=== PATIENT | female | born 1970 | race Caucasian/White ===

== ENCOUNTER 2020-12-10 15:27 | Inpatient (IN) | payer OTHER, SELFPAY ==
[~2020-12-10] VITALS: Ht 167.6 cm; Wt 138.0 kg
[2020-12-10 15:29] VITALS: BP 132/86
--- NOTE | 2020-12-10 15:31 | NUR ---
RT BEDSIDE WITH PATIENT GIVING BREATHING TX
--- NOTE | 2020-12-10 15:31 | NUR ---
BEDSIDE PERFORMNING US WITH PATIENT
[2020-12-10] MEDS ORDERED: NITROGLYCERIN 50 MG/D5W PREMIX 250 ML IV ONE (15:40)
--- NOTE | 2020-12-10 15:58 | NUR ---
MD CALLED FOR STAT BIPAP, PT PLACED ON BIPAP FOR RESP DISTRESS, PT SHOWED SIGNS FOR INCREASED WOB THAT IMPROVED WITH BIPAP PLACEMENT. PT TOLERATING AT THIS TIME.
--- NOTE | 2020-12-10 16:14 | NUR ---
HOTEL REGISTRATION CLERK BEDSIDE TRIED TO GET BLOOD, BUT WAS UNABLE TOO. GOING TO SEND ANOTHER TECH TO TRY AND DRAW BLOOD
--- NOTE | 2020-12-10 16:15 | NUR ---
XRAY BEDSIDE WITH PATIENT
--- NOTE | 2020-12-10 16:21 | NUR ---
LELO MANUEL TAKEN BEDSIDE AND WALKED OVER TO LAB
--- NOTE | 2020-12-10 16:30 | NUR ---
SLIVER LAP MACHINE TENDER BEDSIDE DRAWING BLOOD WORK
[2020-12-10 16:40] LABS: BASOPHILS % (AUTO) 0.4 % (0.0-2.0); EOSINOPHILS # (AUTO) 0.3 K/uL (0-0.4); HEMOGLOBIN 12.9 g/dL (12.0-16.0); LYMPHOCYTES # (AUTO) 1.5 K/uL (2.5-16.5); LYMPHOCYTES % (AUTO) 15.7 % (20.5-51.1); MEAN CORPUSCULAR HEMOGLOBIN 27 pg (27-31); MEAN CORPUSCULAR HGB CONC 32 g/dL (33-37); MEAN CORPUSCULAR VOLUME 84.1 fL (80-94); MONOCYTES # (AUTO) 0.7 K/uL (0.8-1.0); MONOCYTES % (AUTO) 6.9 % (1.7-9.3); NEUTROPHILS # (AUTO) 7.3 K/uL (1.8-7.7); PLATELET COUNT (AUTO) 281 K/uL (140-450); RED BLOOD CELL COUNT(AUTO) 4.75 MIL/uL (4.20-5.40); RED CELL DISTRIBUTION WIDTH 14.2 % (11.6-13.7); WHITE BLOOD COUNT (AUTO) 9.8 K/uL (4.8-10.8)
--- NOTE | 2020-12-10 16:43 | NUR ---
RT BEDSIDE WITH PT RE-EVALUATING
[2020-12-10 16:49] LABS: C-REACTIVE PROTEIN QUANT 2.2 mg/dL (0.0-0.9)
[2020-12-10 16:50] LABS: ANION GAP 12.1 (8-16); CARBON DIOXIDE 28.1 mmol/L (21-32); CREATININE 1.1 mg/dL (0.6-1.3); POTASSIUM 4.2 mmol/L (3.5-5.1)
[2020-12-10 16:56] LABS: BILIRUBIN,DIRECT 0.1 mg/dL (0.0-0.3); TOTAL BILIRUBIN 0.2 mg/dL (0.0-1.0)
[2020-12-10 17:07] LABS: ALBUMIN 3.1 g/dL (3.4-5.0)
[2020-12-10] MEDS ORDERED: AZITHROMYCIN 500 MG in DEXTROSE 5% 250 ML IV ONE (17:10)
[2020-12-10] MEDS ORDERED: cefTRIAXone 2,000 MG in DEXTROSE 5% 100 ML IV ONE (17:10)
[2020-12-10] MEDS ORDERED: cefTRIAXone 2,000 MG VIAL ONE (17:18)
--- NOTE | 2020-12-10 17:28 | NUR ---
RN WENT TO LOBBY/PARKING LOT TO SPEAK TO FAMILY. NO FAMILY MEMBERS PRESENT
--- NOTE | 2020-12-10 17:44 | NUR ---
SPOKE WITH PATIENTS FAUSTO NAZARIO AND PROVIDED UPDATE ON PATIENT. ARAVIND (SON) NUMBER: [phone]
--- NOTE | 2020-12-10 17:52 | NUR ---
PT RESTING IN BED. WILL CONTUINE TO MONITOR. VS STABLE
[2020-12-10] MEDS ORDERED: FUROSEMIDE 40 MG/4 ML VIAL IVP ONE (18:05)
[2020-12-10] MEDS ORDERED: ASPIRIN 81 MG TAB.CHEW PO ONE (18:05)
[2020-12-10] MEDS ORDERED: fentaNYL citrate 0.05 MG/ML VIAL IVP ONE (18:10)
[2020-12-10] MEDS ORDERED: MIRT-92 PO (18:14)
[2020-12-10] MEDS ORDERED: IBUP-2213 PO (18:14)
[2020-12-10] MEDS ORDERED: FURO-570 PO (18:14)
[2020-12-10] MEDS ORDERED: ASPI-1822 PO (18:14)
[2020-12-10] MEDS ORDERED: ESCI20TA PO (18:14)
[2020-12-10] MEDS ORDERED: AZITHROMYCIN 500 MG INJ VIAL IV ONE (18:20)
--- NOTE | 2020-12-10 19:22 | NUR ---
gave report to rafita de la cruz. transfer of care given
--- NOTE | 2020-12-10 19:31 | NUR ---
REPORT RECIEVED FROM CAROLINA HAN FOR CONTINUITY OF CARE.
--- NOTE | 2020-12-10 20:00 | NUR ---
ASSISTED PT WITH BED GARG AND REPOSITIONED FOR COMFORT. PT TOLERATED WELL.
--- NOTE | 2020-12-10 20:37 | NUR ---
WITH CONSENT FROM PATIENT, PROVIDED PT STATUS UPDATE TO PTS SONARAVIND ([phone]).
--- NOTE | 2020-12-10 20:44 | NUR ---
RT AT BEDSIDE.
--- NOTE | 2020-12-10 20:45 | NUR ---
NOTICED REDNESS ON PTS FACE UNDER BI-PAP MASK ADDED PROTECTA -GEL, ALSO TITRATED PT FIO2 DOWN TO 35%, PT IS TOLERATING WELL, WILL CONTINUE TO MONITOR
--- NOTE | 2020-12-10 20:55 | NUR ---
DR. Carlyle MAZA AT BEDSIDE
--- NOTE | 2020-12-10 20:56 | NUR ---
RECIEVED VERBAL ORDER FROM MD MAZA FOR BILATERAL LOWER EXTREMITY ULTRASOUND.
--- NOTE | 2020-12-10 21:10 | NUR ---
ULTRASOUND AT BEDSIDE.
--- NOTE | 2020-12-10 21:44 | NUR ---
Patient appears to be resting comfortably in bed WITH EYES CLOSED. VSS. Respirations even and unlabored, PT TOLERATING BIPAP WELL. DENIES DISCOMFORT AT THIS TIME.
[2020-12-10] MEDS ORDERED: ONDANSETRON 4 MG/2 ML VIAL IVP PRN (21:55)
[2020-12-10] MEDS ORDERED: KCL 20 MEQ/WATER INJ PREMIX 200 ML IV PRN (21:55)
[2020-12-10] MEDS ORDERED: MAG SULF 2000 MG/WATER PREMIX 50 ML IV PRN (21:55)
[2020-12-10] MEDS ORDERED: MORPHINE SULFATE 4 MG/ML SYR IVP PRN (21:55)
--- NOTE | 2020-12-10 22:04 | NUR ---
LAB AT BEDSIDE.
--- NOTE | 2020-12-10 22:17 | NUR ---
OFFERED TO REPOSITION, PT REPORTS SHE IS COMFORTABLE AT THIS TIME. DENIES NEEDING TO USE BED GARG. DENIES DISCOMFORT AT THIS TIME.
--- NOTE | 2020-12-10 22:35 | NUR ---
CRITICAL LAB VALUE RECIEVED FROM H[employer] FILM PROCESSING SHIFT SUPERVISOR: TROPONIN 0.121
--- NOTE | 2020-12-10 22:36 | NUR ---
SOTERO HUERTAS PAGED EDGING CATCHER MD TO REPORT CRITICAL LAB VALUE.
--- NOTE | 2020-12-10 22:40 | NUR ---
RT AT BEDSIDE ASSESSING PATIENT.
--- NOTE | 2020-12-10 23:06 | NUR ---
SPOKE WITH MD BELTRÁN, UPDATED REGARDING CRITICAL LAB VALUE, NEW ORDER RECIEVED: HEPARIN SUBQ 5,000 UNITS STAT.
--- NOTE | 2020-12-10 23:15 | NUR ---
PT REPOSITIONED IN BED FOR COMFORT. ADDITIONAL BLANKET PROVIDED PER PT REQUEST. PT DENIES PAIN OR DISCOMFORT AT THIS TIME.
--- NOTE | 2020-12-10 23:31 | NUR ---
Patient will be admitted to care of MD NELIDA. Admited to ICU. Will go to room 7. Belongings list completed. Report to CAROLINA POST.
--- NOTE | 2020-12-10 23:34 | NUR ---
PT TAKEN TO ICU BED 7 VIA DILIA WITH DREW (RT), DOUGLAS (RN) AND KURT (EMT.) PTS SON, ARAVIND, UPDATED PER REQUEST REGARDING PT STATUS AND ADMISSION.
--- NOTE | 2020-12-10 23:45 | NUR ---
ASSISTED ER STAFF WITH TRANSPORT OF PT FROM ER BED #7 TO ICU BED#8, PT REMAINS STABLE ON BI-PAP, IN NO DISTRESS, WILL CONTINUE TO MONITOR
--- NOTE | 2020-12-10 23:50 | NUR ---
RECIEVED ED ADMISSION BY ER NURSE, PT PRINCE DOBBS, A&0X4, ABLE TO MAKE NEEDS KNOWN AND FOLLOWS COMMANDS, ABLE TO SLIDE INTO ICU BED FROM THE HERMESRNANDO, AFEBRILE, VSS, SR ON MONITOR, PT ON BIPAP FIO2 32% W/ SATURATION 87%, SKIN WARM DRY AND INTACT, LAC 20 G PIV SALINE LOCKED, INTACTED FLUSHED AND PATENT, PT BELONGINGS PLACED AT BEDSIDE, PT ORIENTED TO UNIT, NO SIGNS OF ACUTE DISTRESS, SAFETY MEASURES IN PLACE, WILL CONTINUE WITH CURRENT
[2020-12-11] VITALS (17 sets, daily range): BP systolic 93–139; BP diastolic 43–74
--- NOTE | 2020-12-11 | NUR ---
STARTED NS TKO, ADMINISTERED 0000H MEDICATION PER MD ORDER
[2020-12-11] MEDS ORDERED: PIPERACILLIN/TAZOBACTAM 3.375 GM VIAL IV ONE (00:14)
[2020-12-11] MEDS: PIPERACILLIN/TAZOBACTAM 3.375 GM in DEXTROSE 5% 50 ML IV SCH ×5 (00:44→23:08)
--- NOTE | 2020-12-11 03:12 | NUR ---
PT APPEARS TO BE ASLEEP AND SHOWING NO SIGNS OF ACUTE DISTRESS
--- NOTE | 2020-12-11 04:35 | NUR ---
MORNING CARE GIVEN, LINEN CHANGED, ASSISTED PT WITH THE USE OF BEDPAN, NO SIGNS OF ACUTE DISTRESS
--- NOTE | 2020-12-11 05:00 | NUR ---
ADMINISTERED 0600H MEDICATION PER MD ORDERS, PT ASLEEP AND SHOWING NO SIGNS OF ACUTE DISTRESS
[2020-12-11 05:05] LABS: BASOPHILS # (AUTO) 0.1 K/uL (0.00-0.22); BASOPHILS % (AUTO) 0.9 % (0.0-2.0); EOSINOPHILS # (AUTO) 0.4 K/uL (0-0.4); EOSINOPHILS % (AUTO) 4.2 % (0.0-4.0); HEMATOCRIT 38.1 % (36-48); HEMOGLOBIN 12.6 g/dL (12.0-16.0); LYMPHOCYTES # (AUTO) 1.9 K/uL (2.5-16.5); LYMPHOCYTES % (AUTO) 19.9 % (20.5-51.1); MEAN CORPUSCULAR HEMOGLOBIN 28 pg (27-31); MEAN CORPUSCULAR HGB CONC 33 g/dL (33-37); MEAN CORPUSCULAR VOLUME 84.2 fL (80-94); MONOCYTES # (AUTO) 0.7 K/uL (0.8-1.0); MONOCYTES % (AUTO) 7.7 % (1.7-9.3); NEUTROPHILS # (AUTO) 6.4 K/uL (1.8-7.7); NEUTROPHILS % (AUTO) 67.3 % (42.2-75.2); PLATELET COUNT (AUTO) 307 K/uL (140-450); RED BLOOD CELL COUNT(AUTO) 4.52 MIL/uL (4.20-5.40); RED CELL DISTRIBUTION WIDTH 14.1 % (11.6-13.7); WHITE BLOOD COUNT (AUTO) 9.6 K/uL (4.8-10.8)
[2020-12-11 06:03] LABS: ANION GAP 15.8 (8-16); CARBON DIOXIDE 24.7 mmol/L (21-32); CREATININE 0.9 mg/dL (0.6-1.3); MAGNESIUM 1.6 mg/dL (1.8-2.4); POTASSIUM 3.5 mmol/L (3.5-5.1); TOTAL BILIRUBIN 0.5 mg/dL (0.0-1.0)
[2020-12-11 06:35] LABS: CHOL/HDL RATIO 2.4 (1-4.5)
--- NOTE | 2020-12-11 07:15 | NUR ---
RECEIVED HANDOFF FROM VAULT MANAGER RN. PT IS A&OX4, ON BIPAP AT 32% FIO2, SATURATING 99%. PT IS SR ON THE MONITOR AT THIS TIME. PT HAS ACCESS AT L AC 20 G WITH NS RUNNING TKO. PT IS CURRENTLY NPO EXCEPT MEDS. HOB IS 30 DEG WITH BED IN LOW AND LOCKED POSITION. SAFETY MEASURES IN PLACE, WITH CALL LIGHT WITHIN REACH.
--- NOTE | 2020-12-11 08:20 | NUR ---
MEDICATION ADMINISTERED PER ORDER, PT TOLERATED WELL. TEMPERATURE 97.4 TEMPORALLY. ASSISTED PT IN CLEANING WITH WIPES AT THIS TIME. PT REMAINS RESTING.
--- NOTE | 2020-12-11 09:38 | NUR ---
Patient was placed on nasal cannula after result of abg was given to rn at bedside. Patient states that she is feeling better and is not in any resp distress. Informed patient that bipap is at bedside and likely be for nighttime use during hospital stay. Advise order for sleep study after discharge from hospital for home cpap/bipap use.
--- NOTE | 2020-12-11 09:42 | NUR ---
PATIENT HAS BEEN SCREENED AND CATEGORIZED HIGH NUTRITION RISK. PATIENT WILL BE SEEN WITHIN 1-2 DAYS OF ADMISSION. 12/11/[address]
--- NOTE | 2020-12-11 11:41 | NUR ---
ATTEMPTED TO CALL DR. MAZA'S CELL AFTER PAGING OFFICE 3 TIMES IN REGARD TO DOWNGRADING PT. NOW ANSWER Addendum: 12/11/20 at 1141 by Sylvia Beltran RN RN *NO ANSWER
[2020-12-11] MEDS ORDERED: PIPERACILLIN/TAZOBACTAM 3.375 GM in DEXTROSE 5% 50 ML IV SCH (12:00)
--- NOTE | 2020-12-11 12:00 | NUR ---
IV ANTIBIOTICS RUNNING PER ORDER, PT TOLERATING WELL. CALL LIGHT WITHIN REACH AND ABLE TO MAKE NEEDS KNOWN.
--- NOTE | 2020-12-11 13:02 | NUR ---
PATIENT BEING MOVED TO THE FLOOR - BIPAP PUSHED DOWN TO PTS NEW ROOM - PT TOLERATING NC WELL - NO RESP DISTRESS NOTED
[2020-12-11] MEDS: ALBUTEROL SULFATE/IPRATROPIU 3 ML SOL IH SCH ×2 (13:55→19:45)
--- NOTE | 2020-12-11 14:00 | NUR ---
PT TRANSFERRED TO TELE AND WILL NOW BE UNDER CARE OF JENNIFER FIGUEROA.
--- NOTE | 2020-12-11 14:10 | NUR ---
PATIENT IN RM 108B SHE A IS ABLE TO WALK SLOWLY TO BATH ROOM WITH ASSISTANCE BACK TO BED WITH OUT SOB DENIED PAIN.
--- NOTE | 2020-12-11 14:59 | NUR ---
DR OWEN AT BED SIDE , NO ORDER CHANGE, PT. IS AWAKE AND ALERT.
--- NOTE | 2020-12-11 17:37 | NUR ---
DR. MAZA AT BED SIDE PT. IS AWAKE AND ALERT FOLLOW COMMAND.
--- NOTE | 2020-12-11 19:30 | NUR ---
ASSUMED CARE OF PT.INITIAL ASSESSMENT COMPLETED.PT AWAKE ALERT AND ORIENTEDX4.ON 02NC AT 2LPM.NO S/SX OF RESP DISTRESS NOTED.PERIPHERAL IV TO LT AC G20 INTACT.NS AT TKO.PT ON CLEAR LIQUID DIET,TOLERATING.PT DENIES N/V.PT ABLE TO MOVE ALL EXTREMITIES.SKIN INTACT.DENIES PAIN.ABLE TO VOID FREELY.WILL CONTINUE TO MONITOR PT
--- NOTE | 2020-12-11 21:00 | NUR ---
PT UP TO BEDSIDE COMMODE; ABLE TO VOID FREELY.STILL ON 02NC.NO SOB NOTED
[2020-12-12] VITALS: BP 120/68
--- NOTE | 2020-12-12 00:08 | NUR ---
PT ASLEEP AT THIS TIME,EASILY AROUSABLE.ON CPAP FIO2 28%.NO SOB NOTED.DENIES PAIN
--- NOTE | 2020-12-12 02:38 | NUR ---
pt awake; to bedside commode.voided cloudy urine.adequate amt.denies sob.denies pain.
[2020-12-12 04:00] VITALS: BP 117/54
--- NOTE | 2020-12-12 04:34 | NUR ---
morning care rendered.no sob noted.pt denies pain
[2020-12-12] MEDS: PIPERACILLIN/TAZOBACTAM 3.375 GM in DEXTROSE 5% 50 ML IV SCH ×2 (06:00→12:01)
[2020-12-12] MEDS: ALBUTEROL SULFATE/IPRATROPIU 3 ML SOL IH SCH ×2 (06:59→11:54)
[2020-12-12 07:01] LABS: BASOPHILS % (AUTO) 0.7 % (0.0-2.0); EOSINOPHILS # (AUTO) 0.4 K/uL (0-0.4); EOSINOPHILS % (AUTO) 6.1 % (0.0-4.0); HEMATOCRIT 37.2 % (36-48); LYMPHOCYTES # (AUTO) 1.9 K/uL (2.5-16.5); LYMPHOCYTES % (AUTO) 30.7 % (20.5-51.1); MEAN CORPUSCULAR HEMOGLOBIN 27 pg (27-31); MEAN CORPUSCULAR HGB CONC 32 g/dL (33-37); MEAN CORPUSCULAR VOLUME 84.2 fL (80-94); MONOCYTES # (AUTO) 0.6 K/uL (0.8-1.0); MONOCYTES % (AUTO) 9.5 % (1.7-9.3); NEUTROPHILS # (AUTO) 3.4 K/uL (1.8-7.7); PLATELET COUNT (AUTO) 248 K/uL (140-450); RED BLOOD CELL COUNT(AUTO) 4.42 MIL/uL (4.20-5.40); RED CELL DISTRIBUTION WIDTH 14.4 % (11.6-13.7); WHITE BLOOD COUNT (AUTO) 6.3 K/uL (4.8-10.8)
--- NOTE | 2020-12-12 07:41 | NUR ---
RECEIVED REPORT FROM NIGHT NURSE. ACCORDING TO NIGHT NURSE, PT CAME IN WITH A CC OF SOB FROM SWIMMING IN THE POOL. PT WAS TRANSFERRED FROM THE ICU. PT WENT FROM CPAP TO NC TO RA ORDERED FROM RT. PT HAS A BEDISDE COMMODE. PT AMBULATES. PT HAS AN IV ON LAC 20G. SKIN IS INTACT. PT CAME FROM HOME. REVIEWED PLAN OF CARE FOR CONTINUITY OF CARE. CALL LIGHT IS WITHIN REACH. WILL CONTINUE PLAN OF CARE.
[2020-12-12 07:45] LABS: ALBUMIN 3.1 g/dL (3.4-5.0); ANION GAP 10.1 (8-16); CARBON DIOXIDE 27.8 mmol/L (21-32); CREATININE 1.1 mg/dL (0.6-1.3); POTASSIUM 3.9 mmol/L (3.5-5.1); TOTAL BILIRUBIN 0.5 mg/dL (0.0-1.0)
[2020-12-12 08:00] VITALS: BP 120/59
--- NOTE | 2020-12-12 08:32 | NUR ---
MEDICATION DUE GIVEN CHECK VITAL SIGNS PRIOR TO MEDICATION BP 120/59 WI 67. PT COMPLAINS OF ABDOMINAL PAIN EVERY TIME SHE MOVES. SAFETY MEASURES IN PLACE AND CALL LIGHT WITHIN REACH WILL CONTINUE TO MONITOR.
[2020-12-12] MEDS ORDERED: PANTOPRAZOLE 40 MG INJ VIAL IVP SCH (09:25)
--- NOTE | 2020-12-12 09:53 | NUR ---
PANTOPRAZOLE 40 MG IV GIVEN PT TOLERATED WELL.
[2020-12-12 12:00] VITALS: BP 135/58
--- NOTE | 2020-12-12 12:06 | NUR ---
MEDICATION DUE GIVEN ZOSYN 3.375 MG INFUSING WELL.
[2020-12-12 15:16] VITALS: BP 120/59
--- NOTE | 2020-12-12 15:51 | NUR ---
PATIENT SEEN BY PHYSICAL THERAPY AND OXYGEN SATURATION AT 94-96%
[2020-12-12 16:00] VITALS: BP 141/65
--- NOTE | 2020-12-12 16:55 | NUR ---
PT WAS DISCHARGED HOME. PT WAS PROVIDED WITH DISCHARGE PACKET. PT AND TWO SONS WERE EDUCATED ON FOLLOWING UP WITH THE PRIMARY HEALTH CARE PROVIDER AND ACID CONCENTRATOR WITHIN 7 DAYS AFTER DISCHARGE. PT WAS EDUCATED ON THE CONTINOUS PRACTICE OF IS TO HELP PREVENT ATELECTASIS. PT WAS EDUCATED ON SIGNS AND SYMPTOMS OF WHEN TO SEEK MEDICAL HELP. PT AND FAMILY WERE EDUCATED ON DISEASE PROCESS AND HOW TO PREVENT EXACERBATION. IV CATHETER WAS DC'D NO BLEEDING WAS PRESENT UPON EXPULSION OF CATHETER. CATHETER WAS INTACT AND DISPOSED PER FACILITY PROTOCOL. PT WAS ABLE TO CHANGE HERSLEF. PT AND FAMILY SHOWED INTEREST AND WILLINGNESS TO CHANGE DIET LIFESTYLE. PT WAS WHEELED DOWN BY WHEELCHAIR TO THE FRONT LOBBY WITH TWO SONS BY WHEELCHAIR. PT WAS TAKEN BY PRIVATE VEHICLE. WILL END PLAN OF CARE.
== END 2020-12-12 16:55 | disposition home or self-care (01) | DRG 720 ==
LOC: MED 15:27 → MTU 21:58 → EDBD 21:58 → MIC 23:27 → MTU 12-11 14:00
PROVIDERS: ADMIT Hospitalist; ATTEND Hospitalist
PROC: 5A09357 Assistance with Respiratory Ventilation, Less than 24 Consecutive Hours, Continuous Positive Airway Pressure (ICD-10-PCS; principal; 2020-12-10)
DX: A41.9 Sepsis, unspecified organism (principal); J96.01 Acute respiratory failure with hypoxia; J18.9 Pneumonia, unspecified organism; I10 Essential (primary) hypertension; I44.7 Left bundle-branch block, unspecified; F32.9 Major depressive disorder, single episode, unspecified; E78.5 Hyperlipidemia, unspecified; I25.10 Atherosclerotic heart disease of native coronary artery without angina pectoris; K42.9 Umbilical hernia without obstruction or gangrene; Z20.822 Contact with and (suspected) exposure to COVID-19; K44.9 Diaphragmatic hernia without obstruction or gangrene; E66.9 Obesity, unspecified; Z68.42 Body mass index [BMI] 45.0-49.9, adult; Z88.5 Allergy status to narcotic agent; Z88.0 Allergy status to penicillin; Z88.8 Allergy status to other drugs, medicaments and biological substances
CPT/HCPCS: 36415; 36600; 71045; 80048; 80053; 80076; 82803; 83036; 83735; 83880; 84484; 85025; 86140; 87081; 93005; 93970; 94640; 94660; 96365; 96366; 96367; 96375; 99291; C9113; J0456; J0696; J1644; J1940; J2543; J3010; J3490; J7060

== ENCOUNTER 2021-03-08 16:43 | Emergency (ER) | payer OTHER, SELFPAY ==
[~2021-03-08] VITALS: Ht 157.5 cm; Wt 140.6 kg
[~2021-03-08 16:43] MED LIST: ASPI-1822 PO; ESCI20TA PO; FURO-570 PO; IBUP-2213 PO; MIRT-92 PO
[2021-03-08 16:55] VITALS: BP 151/89
--- NOTE | 2021-03-08 16:59 | NUR ---
PT TO WAIT IN TENT.
--- NOTE | 2021-03-08 17:03 | NUR ---
URSULA KURTZ WITH PT FOR FURTHER EVALUATION.
--- NOTE | 2021-03-08 17:14 | NUR ---
NEWS CAMERA OPERATOR WITH PT.
[2021-03-08 17:46] LABS: BASOPHILS # (AUTO) 0.2 K/uL (0.00-0.22); BASOPHILS % (AUTO) 1.9 % (0.0-2.0); EOSINOPHILS # (AUTO) 0.5 K/uL (0-0.4); EOSINOPHILS % (AUTO) 4.9 % (0.0-4.0); HEMATOCRIT 42.5 % (36-48); HEMOGLOBIN 13.6 g/dL (12.0-16.0); LYMPHOCYTES # (AUTO) 2.4 K/uL (2.5-16.5); LYMPHOCYTES % (AUTO) 24.3 % (20.5-51.1); MEAN CORPUSCULAR HEMOGLOBIN 27 pg (27-31); MEAN CORPUSCULAR HGB CONC 32 g/dL (33-37); MEAN CORPUSCULAR VOLUME 85.3 fL (80-94); MONOCYTES # (AUTO) 0.9 K/uL (0.8-1.0); MONOCYTES % (AUTO) 8.6 % (1.7-9.3); NEUTROPHILS % (AUTO) 60.3 % (42.2-75.2); PLATELET COUNT (AUTO) 302 K/uL (140-450); RED BLOOD CELL COUNT(AUTO) 4.98 MIL/uL (4.20-5.40); RED CELL DISTRIBUTION WIDTH 14.6 % (11.6-13.7); WHITE BLOOD COUNT (AUTO) 9.9 K/uL (4.8-10.8)
[2021-03-08 18:01] LABS: ALBUMIN 3.5 g/dL (3.4-5.0); ANION GAP 10.6 (8-16); CARBON DIOXIDE 30.4 mmol/L (21-32); CREATININE 1.2 mg/dL (0.6-1.3); TOTAL BILIRUBIN 0.2 mg/dL (0.0-1.0)
--- NOTE | 2021-03-08 19:02 | NUR ---
SPOT CHECKER WITH PT FOR REPEAT BLOOD WORK.
--- NOTE | 2021-03-08 19:35 | NUR ---
PT TAKEN TO BED 3
--- NOTE | 2021-03-08 19:38 | NUR ---
KEILA ELAM WALKED TO LAB.
--- NOTE | 2021-03-08 19:57 | NUR ---
PT BIBS FOR C/C LEFT WALL CHEST PAIN X 1 WEEK, NONRADIATING, PAIN 08/19. PT REPORTS "IT HURTS MORE WHEN I MOVE." DENIES SOB, N/V/D, FEVER, CHILLS. BLE SWELLING NOTED +1 PITTING, BASELINE PER PATIENT. CAP REFILL < 3 SECONDS. BILATERAL RADIAL PULSES EQUAL AND STRONG. MED HX: DM, HTN, HLD, ARTHRITIS, HERNIAS, HEART MURMUR, ASTHMA, COPD ALLERGIES: SEE LISTED
[2021-03-08] MEDS ORDERED: PRED20TA5 PO (20:28)
[2021-03-08 21:27] VITALS: BP 140/60
--- NOTE | 2021-03-08 21:27 | NUR ---
Patient discharged with v/s stable. Written and verbal after care instructions given and explained. Patient alert, oriented and verbalized understanding of instructions. Ambulatory with steady gait. All questions addressed prior to discharge. ID band removed. Patient advised to follow up with PMD. Rx of DELTASONE given. Patient educated on indication of medication including possible reaction and side effects. Opportunity to ask questions provided and answered.
== END 2021-03-08 21:27 | disposition home or self-care (01) ==
LOC: MED 16:43
DX: R07.9 Chest pain, unspecified (principal); Z20.822 Contact with and (suspected) exposure to COVID-19; R06.02 Shortness of breath; J44.9 Chronic obstructive pulmonary disease, unspecified; E11.9 Type 2 diabetes mellitus without complications; I10 Essential (primary) hypertension; Z79.899 Other long term (current) drug therapy; Z79.82 Long term (current) use of aspirin; Z88.0 Allergy status to penicillin; Z88.6 Allergy status to analgesic agent; Z88.5 Allergy status to narcotic agent
CPT/HCPCS: 36415; 71045; 80053; 83690; 83880; 84484; 85025; 93005; 99284; Q0092; U0003